=== PATIENT | male | born 1945 | race Caucasian/White ===

== ENCOUNTER → 2017-03-14 | Outpatient (CLI) | payer MEDICARE, OTHER ==
[~2017-03-14] MED LIST: ASPI-860 PO; CELE200C PO; ISOS30TA82 PO; LOSA100T3 PO; METF-473 PO; NITR0.4T SL; SIMV40TA2 PO; TICA90TA PO
== END ==
LOC: RT 09:21
PROVIDERS: ATTEND Internal Medicine
DX: I25.10 Atherosclerotic heart disease of native coronary artery without angina pectoris (principal)
CPT/HCPCS: 93005